=== PATIENT | male | born 2000 | race Two or more races ===

== ENCOUNTER 2018-04-19 17:25 | Emergency (ER) | payer BC ==
--- NOTE | 2018-04-19 17:52 | EDPHY ---
General Time Seen by Provider: 04/19/18 17:51 Narrative: CLINICAL IMPRESSION: Right clavicle fracture ASSESSMENT/PLAN: Patient is a 18-year-old male visiting from [place] who presents with complaint of right clavicle pain and deformity after sustaining a fall while snowboarding. Patient is nontoxic-appearing, he is in no acute distress on arrival. Clavicle x-rays reveals acute right midshaft displaced clavicle fracture. There was no evidence of open fracture or tenting, dislocation, compartment syndrome or neurovascular compromise. His history and physical examination is most consistent with acute right clavicle fracture. The patient was placed in a shoulder immobilizer, CMS intact post immobilization. He was given [place] with improvement of his pain. Patient is visiting from [place] and returning on Saturday, he is well established with his primary care back home and will call to get a referral for orthopedic surgery. Return precautions discussed- patient to return to the emergency Department for significantly worsening or uncontrolled pain, significant swelling, numbness or tingling of the extremity, paleness or coolness of his digits, fever or for any other concerning symptom. The patient verbalizes understanding and he is in agreement with this plan. DIFFERENTIAL DX: Differential diagnosis includes but not limited to fracture, dislocation, contusion, sprain ED PROCEDURES: Procedure: Immobilization. A shoulder immobilizer was applied. After application I returned and re- examined the patient. It was adequately immobilizing the joint and distal to the splint the patient's circulation and sensation was intact. ED COURSE: 1800: Case discussed with Dr. Anaya CHIEF COMPLAINT: Right clavicle pain and deformity HPI: Patient is a 18-year-old male with no significant medical history, visiting from [place] who presents to the emergency department with complaints of right clavicle pain and deformity after sustaining a fall while snowboarding. Patient reports injury occurred at about 10:00 a.m. This morning, he was unable to continue snowboarding and proceeded [place] from [place] for further evaluation. Patient was going [place], he caught his snowboard and landed directly onto his right shoulder. He was not wearing a helmet however he did not hit his head and there was no loss of consciousness. He denies any neck or back pain. He denies any shoulder pain. He has had no numbness or tingling of the arm or hand. He denies any other injury or complaint. PAST MEDICAL HISTORY: Denies Pertinent Past Surgical History: Denies Family History: Noncontributory Social History: Occasional marijuana, denies illicit drug use, cigarette smoking and rare alcohol use ROS: A full 10 point review of systems was negative except for those mentioned in HPI. PHYSICAL EXAM: General Appearance: Patient is well-appearing and in no acute distress. HENT: Normocephalic, atraumatic. External ears are normal, TMs normal without evidence of hemotympanum. Nares clear, no nasal bridge tenderness. Oropharynx is clear, no malocclusion or mandibular tenderness to palpation. Dentition without abnormality. Eyes: PERRLA, EOMI intact. Conjunctiva pink, no pallor or injection Respiratory: There are no retractions, lungs are clear to auscultation. No chest wall tenderness to palpation. Cardiac: Regular rate and rhythm, no murmurs or gallops. Gastrointestinal: Abdomen is soft, nontender, bowel sounds normal, no masses/ hernia, no rigidity, guarding or focal peritoneal findings. Upper Extremities: Right clavicle with tenderness to palpation in the mid shaft with obvious deformity. No significant edema or ecchymosis. There is no erythema. No increased warmth on palpation. He has no scapular tenderness to palpation. Limited ROM right shoulder with flexion/extension/abduction/adduction, pain elicited with all movement only to his clavicle. 2+ radial pulses with capillary refill < 2 seconds. 5/5 strength at fingers, wrist, elbow. Resisted wrist extension (radial nerve): normal. Resisted thumb opposition ( median nerve): normal. Resisted finger abduction (ulnar nerve): normal. Sensation intact throughout. Neck: FROM intact to flexion/extension/rotational movement. No midline tenderness. No step-off or deformity. Back: No step-off, palpable bony abnormality, edema, erythema or ecchymosis of the cervical, thoracic or lumbar spines. Thoracic and lumbar spines with no midline or paraspinal muscle tenderness to palpation. Full range of motion of all spines. 5/5 and equal strength of the UEs and LEs bilaterally including shoulder shrug ( except right shoulder as mentioned above). Pulses: 2+ and equal radial, DP and PT pulses bilaterally. Sensation intact and symmetric to light touch from face, UEs and LEs bilaterally. Skin: Warm, dry, no rashes, no nodules on palpation. MEDICAL DECISION MAKING: Patient was seen independently. Secondary supervising physician at time of evaluation was Dr. Anaya, he did not evaluate this patient. Diagnosis: Right clavicle fracture. New, requires workup Summary: See Assessment and Plan for summary of ED visit Clinical lab tests: Not applicable. Independent visualization of images, tracing, or specimens: Yes. Decision to obtain medical records or history from someone other than the patient: No Review / Summarize previous medical records: None available Discussed patient with another provider: Yes, Dr. Anaya Patient Progress: Stable, discharged. - Diagnostics Imaging Results: Imaging Impressions Clavicle X-Ray 04/19/18 18:02 Impression: Acute displaced midshaft fracture of the right clavicle. - History Smoking Status: Never smoked - Objective Vital Signs: Initial Vital Signs Temperature (C) 36.7 C 04/19/18 17:28 Heart Rate 86 04/19/18 17:28 Respiratory Rate 16 04/19/18 17:28 Blood Pressure 130/65 H 04/19/18 17:28 O2 Sat (%) 97 04/19/18 17:28 O2 Delivery Mode Room Air Allergies/Adverse Reactions: No Known Allergies Allergy (Unverified 04/19/18 17:31) Home Medications: Medication Instructions Recorded Hydrocodone/APAP 5/325 [[place] 1 - 2 tab PO Q6H PRN #20 tab 04/19/18 5/325 (*)] Ibuprofen 04/19/18 Medications Given: Discontinued Medications Hydrocodone Bitart/Acetaminophen ([place] 5/325) 1 tab PO EDNOW ONE Stop: 04/19/18 18:03 Last Admin: 04/19/18 18:12 Dose: 1 tab Departure - Departure Disposition: Home, Routine, Self-Care Clinical Impression: Clavicle fracture, shaft Qualifiers: Encounter type: initial encounter Fracture type: closed Fracture alignment: displaced Laterality: right Qualified Code(s): S42.021A - Displaced fracture of shaft of right clavicle, initial encounter for closed fracture Condition: Good Instructions: Clavicle Fracture (ED) Additional Instructions: DISCHARGE INSTRUCTIONS FROM YOUR DOCTOR Thank you for visiting our emergency department today. Please keep in mind that discharge from the emergency department does not mean that there is nothing wrong - it simply means that we have not identified an emergency condition that requires further evaluation or treatment in the hospital. You should always plan to follow up with primary care for re-evaluation of your condition in the next 2-3 days. Please call your primary care provider in [place] as he will need an orthopedic referral, I would like you to be seen next week for follow-up. Rest, no heavy lifting, pushing, pulling, carrying with the affected arm. Apply ice on and off to the painful area, whichever feels better. Wear the sling as applied on and off as applied until follow-up. Gentle range of motion exercises several times daily to prevent your shoulder from stiffening up -- pendulum exercises as we discussed. Avoid prolonged immobilization as we discussed as shoulder injuries are prone to "frozen shoulder" which is a significant complication and requires intensive physical therapy to rehabilitate. For pain control: You may take Tylenol, I recommend 500-1000 mg every 6-8 hours as needed. Take with food and a full glass of water. Stop taking if this is upsetting her stomach. Do not exceed 4000 mg in a 24 hr period. You may also take ibuprofen, recommend 400 mg every 6 hr. Take with food and a full glass of water. Stop taking if this upsets her stomach. Do not exceed 2400 mg in a 24 hr period. You have been prescribed [place] which is a narcotic. Please do not drive or operate machinery while taking this medication as it may make you drowsy. It may also be habit forming. This medication can also cause constipation, recommend taking 100 mg of Colace twice daily while taking this medication. This medication also contains Tylenol, please do not take other Tylenol containing products with this medication. Continue your regular medication as prescribed. Call and schedule with a primary care provider for a follow-up appointment and to establish care for your primary care needs. Return for increased or unmanageable pain, inability to move the shoulder or neck, fever, chills, redness, warmth, swelling, numbness, tingling or weakness of the arm, loss of manager health strength, coolness of the fingertips, chest pain, shortness of breath, or for any other new, worsening or worrisome symptoms. People present with illnesses and injuries in different ways, and it is always possible that we have missed something. You may always return for re-evaluation if symptoms worsen or if they are not improving or if you develop new/different symptoms. Again, thank you for choosing our emergency department. We hope that you feel better. Referrals: NONE *PRIMARY CARE P,. [Primary Care Provider] - As per Instructions Prescriptions: Hydrocodone/APAP 5/325 [[place] 5/325 (*)] 1 - 2 tab PO Q6H PRN #20 tab PRN Reason: Pain, Severe
[2018-04-19] MEDS ORDERED: HYDROCODONE/APAP 5/325 TAB PO ONE (18:02)
[2018-04-19 19:03] VITALS: BP 119/81
== END 2018-04-19 19:02 | disposition home or self-care (01) ==
DX: S42.021A Displaced fracture of shaft of right clavicle, initial encounter for closed fracture (principal); V00.311A Fall from snowboard, initial encounter; Y93.23 Activity, snow (alpine) (downhill) skiing, snowboarding, sledding, tobogganing and snow tubing; Y92.828 Other wilderness area as the place of occurrence of the external cause
CPT/HCPCS: A4565